=== PATIENT | female | born 1950 | race Two or more races ===

== ENCOUNTER 2020-11-07 05:20 | Day surgery (SDC) | payer OTHER ==
[~2020-11-07 05:20] MED LIST: AVAPRO300 MG PO; TOPROL XL25 M1 PO; WARFARIN SODIU2.5 MG PO
[2020-11-07] MEDS ORDERED: ULTRAM50 MG PO (08:29)
== END 2020-11-07 10:00 | disposition home or self-care (01) ==
LOC: CIR.AMB 05:20
PROVIDERS: ATTEND Surgery
DX: C20 Malignant neoplasm of rectum (principal); Z20.822 Contact with and (suspected) exposure to COVID-19
CPT/HCPCS: 36561; C1751

== ENCOUNTER 2021-12-05 11:15 | Inpatient (IN) | payer OTHER ==
[~2021-12-05] VITALS: Ht 149.9 cm; Wt 49.0 kg
[~2021-12-05 11:15] MED LIST changes: +ULTRAM50 MG PO
[2021-12-16] MEDS ORDERED: ULTRAM50 MG PO (13:13)
[2021-12-16] MEDS ORDERED: INTESTINEX680 M1 PO (13:13)
[2021-12-16] MEDS ORDERED: AMOX1TAB5 PO (13:13)
== END 2021-12-16 14:27 | disposition home or self-care (01) | DRG 330 ==
LOC: SURH 12-11 09:09 → O/R 12-11 09:09 → SURH 12-11 11:15
PROVIDERS: ADMIT Surgery; ATTEND Surgery
PROC: 0DTP4ZZ Resection of Rectum, Percutaneous Endoscopic Approach (ICD-10-PCS; 2021-12-11)
PROC: 0DTQ4ZZ Resection of Anus, Percutaneous Endoscopic Approach (ICD-10-PCS; 2021-12-11)
PROC: 0D1N4Z4 Bypass Sigmoid Colon to Cutaneous, Percutaneous Endoscopic Approach (ICD-10-PCS; 2021-12-11)
PROC: 0UBG4ZZ Excision of Vagina, Percutaneous Endoscopic Approach (ICD-10-PCS; 2021-12-11)
PROC: 0DTN4ZZ Resection of Sigmoid Colon, Percutaneous Endoscopic Approach (ICD-10-PCS; principal; 2021-12-11 11:30)
DX: C7A.026 Malignant carcinoid tumor of the rectum (principal); K62.5 Hemorrhage of anus and rectum; C79.82 Secondary malignant neoplasm of genital organs; R59.0 Localized enlarged lymph nodes; K62.7 Radiation proctitis; I11.9 Hypertensive heart disease without heart failure; Z20.822 Contact with and (suspected) exposure to COVID-19; I48.91 Unspecified atrial fibrillation; Z95.2 Presence of prosthetic heart valve